=== PATIENT | female | born 1960 | race Caucasian/White ===

== ENCOUNTER 2018-06-07 11:11 | Emergency (ER) | payer MEDICAID ==
[~2018-06-07] VITALS: Ht 170.2 cm; Wt 112.3 kg
[2018-06-07 11:47] VITALS: Ht 170.2 cm; Wt 112.3 kg
[2018-06-07] MEDS ORDERED: PROPRANOLOL HCL20 MG (11:50)
[2018-06-07] MEDS ORDERED: FUROSEMIDE10 MG/M1 (11:50)
[2018-06-07] MEDS ORDERED: ATIVAN0.5 MG (11:50)
[2018-06-07] MEDS ORDERED: ZANAFLEX4 MG (11:50)
[2018-06-07] MEDS ORDERED: POTASSIUM CHLO10 ME1 (11:51)
[2018-06-07 13:47] LABS: BASOPHILS 0.2 % (0-2); HEMATOCRIT 38.9 % (36.0-48.0); HEMOGLOBIN 12.9 g/dL (12-16); IMMATURE GRANULOCYTES 0.3 % (0-5); LYMPHOCYTES 12.1 % (15-50); MCH 29.4 pg (26.0-34.0); MCHC 33.2 g/dL (31.0-37.0); MCV 88.6 fL (80.0-100.0); MEAN PLATELET VOLUME 9.7 fL (7.4-10.4); MONOCYTES 5.3 % (2-11); NEUTROPHILS 81.1 % (40-80); PLATELET COUNT 308 10x3/uL (130-400); RBC 4.39 10x6/uL (4.00-5.40); RDW 13.6 % (11.5-14.5); WBC 12.2 10x3/uL (4.8-10.8)
[2018-06-07 14:01] LABS: ALBUMIN 3.5 g/dL (3.4-5.0); ANION GAP 13.8 mmol/L (8-16); BILIRUBIN - TOTAL 0.61 mg/dL (0.2-1.3); CALCIUM 8.8 mg/dL (8.5-10.1); CARBON DIOXIDE 27.3 mmol/L (21.0-32.0); CREATININE - SERUM 1.1 mg/dL (0.6-1.3); POTASSIUM - SERUM 3.1 mmol/L (3.5-5.1); PROTEIN - SERUM 7.3 g/dL (6.4-8.2)
[2018-06-07 16:00] LABS: APPEARANCE CLEAR (CLEAR); BILIRUBIN NEGATIVE (NEGATIVE); COLOR YELLOW (YELLOW); GLUCOSE NEGATIVE (NEGATIVE); KETONE NEGATIVE (NEGATIVE); NITRITE NEGATIVE (NEGATIVE); PROTEIN NEGATIVE (NEGATIVE); UROBILINOGEN NORMAL (NORMAL)
[2018-06-07] MEDS ORDERED: ZOFRAN ODT4 MG/UDTAB PO (16:04)
[2018-06-07] MEDS ORDERED: BUTALB-APAP-CA1 EACH PO (16:04)
[2018-06-07] MEDS ORDERED: MECLIZINE HCL25 MG PO (16:08)
[2018-06-07 17:11] VITALS: BP 146/81
== END 2018-06-07 17:00 | disposition home or self-care (01) ==
LOC: D.ER 11:11
PROVIDERS: Emergency Medicine
DX: R51 Headache (principal); R42 Dizziness and giddiness; B34.9 Viral infection, unspecified; I10 Essential (primary) hypertension

== ENCOUNTER → 2019-09-26 12:22 | Outpatient (CLI) | payer MEDICAID ==
[2018-06-07 11:47] VITALS: BMI 38.8
[~2019-09-26 12:22] MED LIST: ATIVAN0.5 MG; BUTALB-APAP-CA1 EACH PO; FUROSEMIDE10 MG/M1; MECLIZINE HCL25 MG PO; POTASSIUM CHLO10 ME1; PROPRANOLOL HCL20 MG; ZANAFLEX4 MG; ZOFRAN ODT4 MG/UDTAB PO
== END | disposition home or self-care (01) ==
LOC: D.RAD 12:22
PROVIDERS: ATTEND Clinical Nurse Specialist Family Health
DX: M25.512 Pain in left shoulder (principal)